=== PATIENT | female | born 1980 | race Caucasian/White ===

== ENCOUNTER 2024-11-23 19:20 | Emergency (ER) | payer MEDICAID, SELFPAY ==
[2024-11-23 19:23] VITALS: PULSE 112; RESP 20; O2SAT 98
--- NOTE | 2024-11-23 19:26 | EKG_ITS ---
[facility] Test Date: 2024-11-23 Pat Name: ARABELLA SCHNEIDER Department: Room: - Gender: Female [employer] Manager: : 1980 Requested By: Barb Winchester Order Number: [id number] Reading MD: Barb Winchester Measurements Intervals [place] Rate: 96 P: 51 NH: 196 QRS: -17 QRSD: 89 T: 54 QT: 357 QTc: 452 Interpretive Statements SINUS RHYTHM POSSIBLE ANTERIOR MYOCARDIAL INFARCTION , OF INDETERMINATE AGE [30 ms Q WAVE IN V3/V4, OR R < 0.2 mV IN V4] No previous ECG available for comparison /[id number]
--- NOTE | 2024-11-23 19:26 | XR_ITS ---
Examination: AP chest single view Technique one AP portable semiupright chest single view Date and time: November 23, 2024, 1933 hours INDICATIONS: Chest pain today. FINDINGS: Normal heart size. Lungs are clear. The osseous structures are intact IMPRESSION: No active disease
[2024-11-23 19:27] VITALS: BMI 30.9
--- NOTE | 2024-11-23 19:27 | PD.EDURI ---
Upper Respiratory Inf. RME/HPI General Chief Complaint: Flu Like Symptoms Stated Complaint: WEAKNESS Time Seen by Provider: 11/23/24 19:24 Arrival date/time: 11/23/24 19:20 Limitations: no limitations RME / HPI RME / HPI Narrative: 44-year-old female with history of asthma is here today with a 1 day history of shortness of breath and cough. She is brought in by EMS. Per EMS vital signs are stable in transport, no interventions were provided. She has a pressure under chest that she states is causing pain. She has no nausea or vomiting. Denies any lower leg edema. Has no orthopnea. No history of ACS. Denies any recent traveling or surgeries. She is a smoker. She does not have access to her inhaler currently. She has no other acute complaints. Related Data Allergies Allergy/AdvReac Type Severity Reaction Status Date / Time No Known Allergies Allergy Verified 11/23/24 19:26 Review of Systems Review of Systems Systems Reviewed: All systems reviewed, normal except as documented ED Exam General Limitations: Present no limitations General appearance: Present alert and in no apparent distress Head Head exam: Present atraumatic Eye Eye exam: Present normal appearance, PERRL and EOMI ENT ENT exam: Present normal exam, normal oropharynx and mucous membranes moist Neck Neck exam: Present normal inspection, full ROM and trachea midline Chest Chest inspection: Present normal inspection and symmetric chest wall rise Respiratory Respiratory exam: Present normal lung sounds bilaterally; Absent respiratory distress, stridor, accessory muscle use or prolonged expiratory phase Cardiovascular Cardiovascular exam: Present regular rate, normal rhythm and normal heart sounds Abdominal Exam Abdominal exam: Present soft and normal bowel sounds Extremities Exam Extremities exam: Present normal inspection and full ROM Back Exam Back exam: Present normal inspection and full ROM Neurological Exam Neurological exam: Present alert, oriented X3 and CN II-XII intact Psychiatric Psychiatric exam: Present normal affect and normal mood Skin Skin exam: Present warm, dry, intact and normal color Course Quality Measures none Orders Category Date Time Status Bedside Influenza A&B Antigen Test NOW Care 11/23/24 19:27 Completed EKG (ED ONLY) *Do not use* NOW Care 11/23/24 19:26 Completed Insert IV NOW Care 11/23/24 19:28 Active EKG (ED Only) Stat Exams 11/23/24 19:26 Draft XR chest 1V Stat Exams 11/23/24 19:26 Completed BNP [B-Type Natriuretic Peptide] Stat Lab 11/23/24 19:40 Completed CBC Stat Lab 11/23/24 19:40 Completed CMP [Comprehensive Metabolic Panel] Stat Lab 11/23/24 19:40 Completed COVID-19 Antigen (In-House) Stat Lab 11/23/24 19:32 Completed Lipase Stat Lab 11/23/24 19:40 Completed Mag [Magnesium] Stat Lab 11/23/24 19:40 Completed Troponin I Stat Lab 11/23/24 19:40 Completed Vital Signs Vital signs: Vital Signs Temperature 98.5 F 11/23/24 19:29 Pulse Rate 106 H 11/23/24 19:29 Respiratory Rate 22 H 11/23/24 19:29 Blood Pressure 141/97 H 11/23/24 19:29 Pulse Oximetry (%) 97 11/23/24 19:29 Oxygen Delivery Method Room Air 11/23/24 19:29 Upper Respiratory Infection Patient data External records reviewed:: EMS form Clinical information provided by:: patient and EMS Social determinants that could affect healthcare access:: substance use (smokes 1ppd) Patient has the following chronic illnesses:: asthma How is presenting disease/condition affected by chronic disease/condition?: exacerbated by Evaluation data The following diagnostics were reviewed and interpreted by me:: radiology exam(s) (clear and exanded lungs without mass or infiltrate) and EKG tracing(s) (Normal sinus rhythm at [address] changes or dynamic T waves.) Lab and/or radiology exams considered but not ordered:: n/a Interpretation Summary: no acute pathology Medications / Prescriptions Medications or Prescriptions considered but not ordered:: n/a Medication administrations:: n/a Consultations Consultation(s) initiated? (list below): No Diagnosis Upper Respiratory Differential Diagnosis: upper respiratory infection, sinusitis, viral infection and bronchitis Most likely diagnosis given after review of the tests above:: viral syndrome Admission Indicated Admission indicated?: not indicated Admission Request Was there a request for admission?: No Disposition Plan Disposition Plan: Discharge Discharge Attestation Discharge Attestation: The patient and all family members were given an opportunity to ask questions and understood the discharge instructions. Discharge instructions specifically effects, indications for sooner follow up or return to the emergency department, and the expected course of current diagnosis. Patient condition: Stable Discharge Plan Plan Patient Disposition: HOME (Self Care) Patient condition on transfer: Stable Prescriptions/Referrals Referrals: Kush Fields MD [Primary Care Provider] - In 1 week Problem List Clinical Impression: Upper respiratory infection Patient/Caregiver Discharge Instructions Education Materials: ED URI, Viral, No Abx (Adult) Additional Instructions: Maintain oral hydration. Use tylenol and ibuprofen as needed. Refills of your inhaler have been provided. We have also sent in a Rx for tesemiliana bolanos to help with coughing. Follow up with your primary doctor. Return here as needed for any emergent changes. Print Language: Colombian Stand Alone Forms: Beryl Award Info., Patient Portal Info Letter
[2024-11-23 19:29] VITALS: BP 141/97; PULSE 106; RESP 22; TEMP 36.9; O2SAT 97
[2024-11-23 19:57] LABS: Basophils % (Auto) 0 % (0-2.5); Eosinophils # (Auto) 0.2 Thou/mm3 (0.0-0.5); Eosinophils % (Auto) 3 % (0-10); Hematocrit 39.6 % (36.0-46.0); Hemoglobin 13.9 g/dL (12.0-16.0); Immature Granulocytes % (Auto) 1 % (0-0); Immature Granulocytes Auto 0.05 Thou/mm3 (0.00-0.00); Lymphocytes % (Auto) 15 % (10-50); Mean Corpuscular HGB Conc 35.1 g/dl (31.0-37.0); Mean Corpuscular Hemoglobin 30.3 pg (25.0-35.0); Mean Corpuscular Volume 87 fL (80-100); Monocytes # (Auto) 0.8 Thou/mm3 (0.0-0.8); Monocytes % (Auto) 11 % (0-12); Neutrophils # (Auto) 4.9 Thou/mm3 (1.8-7.7); Neutrophils % (Auto) 71 % (37-80); Nucleated Red Blood Cell % 0 /100 WBC (0); Platelet Count 249 Thou/mm3 (140-440); RDW Standard Deviation 42.9 fL (36.4-46.3); Red Blood Count 4.58 Miln/mm3 (4.00-5.20); White Blood Count 6.9 Thou/mm3 (3.6-11.0)
[2024-11-23 20:03] LABS: COVID-19 Antigen (In-House) Negative (Negative)
[2024-11-23 20:18] LABS: B-Type Natriuretic Peptide < 20 pg/mL (0-100)
[2024-11-23 20:20] LABS: Alanine Aminotransferase 51 U/L (10-49); Albumin, Serum 4.4 gm/dL (3.5-5.0); Albumin/Globulin Ratio 1.7 (1.2-2.2); Alkaline Phosphatase 80 U/L (46-116); Anion Gap 8 (7-16); Aspartate Amino Transferase 31 U/L (0-34); BUN/Creatinine Ratio 10 Ratio (12-20); Bilirubin,Total 0.3 mg/dL (0.3-1.2); Blood Urea Nitrogen 8 mg/dL (9-23); Calcium 9.6 mg/dL (8.3-10.6); Calcium (Corrected) 9.6 mg/dL (8.5-10.1); Carbon Dioxide 24.9 mMol/L (20.0-31.0); Chloride 103 mMol/L (98-107); Creatinine (Component) 0.8 mg/dL (0.6-1.3); Estimated Creatinine Clearance 94.7 mL/min (>60); Globulin 2.6 gm/dL (2.3-3.5); Glucose 95 mg/dL (74-106); Lipase 25 U/L (12-53); Magnesium 1.7 mg/dL (1.6-2.6); Osmolality,Calculated 270 (275-295); Potassium 3.7 mMol/L (3.4-5.1); Sodium 136 mMol/L (136-145); Troponin I < 0.020 ng/mL (0.0-0.045); eGFR > 60 See Note
== END 2024-11-23 21:11 | disposition home or self-care (01) ==
PROVIDERS: Physician Assistant Medical; Emergency Provider Emergency Medicine; PCP Family Medicine
DX: J06.9 Acute upper respiratory infection, unspecified (principal); J45.909 Unspecified asthma, uncomplicated; R07.9 Chest pain, unspecified
CPT/HCPCS: 36415; 71045; 80053; 83690; 83735; 83880; 84484; 85025; 87400; 87811; 93005; 99283